=== PATIENT | male | born 1985 | race African-American/Black ===

== ENCOUNTER 2024-05-13 23:50 | Emergency (ER) | payer MEDICAID ==
[2024-05-14 00:07] VITALS: PULSE 75; O2SAT 100
== END 2024-05-14 02:30 | disposition left against medical advice (07) ==
LOC: ER 05-14 00:21
DX: Z11.3 Encounter for screening for infections with a predominantly sexual mode of transmission (principal); Z53.21 Procedure and treatment not carried out due to patient leaving prior to being seen by health care provider